=== PATIENT | male | born 1980 | race Caucasian/White ===

== ENCOUNTER 2018-02-23 21:10 | Emergency (ER) | payer BC, SELFPAY ==
[2018-02-23 21:12] VITALS: BP 150/71; PULSE 78; RESP 14; TEMP 36.7; O2SAT 98; BMI 33.1
--- NOTE | 2018-02-23 21:51 | CT_ITS ---
STUDY: CT ABDOMEN AND PELVIS WITHOUT CONTRAST REASON FOR EXAM: Male, 37 years old. Left flank pain RADIATION DOSAGE (If Supplied By Facility): CTDIvol = ( 16.79 ) mGy, DLP = ( 944.69 ) mGycm TECHNIQUE: Transaxial images were obtained from the dome of the diaphragm to the symphysis pubis without oral contrast, and without intravenous contrast. Sagittal and coronal images were reconstructed. Individualized dose optimization techniques were used for this CT. COMPARISON: None. FINDINGS: The visualized lung bases are unremarkable. The visualized portions of the heart are within normal limits. Normal liver. Normal gallbladder and extrahepatic biliary system. Normal spleen. Normal pancreas. Normal bilateral adrenal glands. Normal right kidney. Normal left kidney. Normal visualized stomach. Normal small intestine. Normal colon. The appendix is visualized and appears normal. Normal abdominal aorta. Normal inferior vena cava. Normal retroperitoneum. Normal urinary bladder. Normal abdominal wall. Normal osseous structures. CT/Abdomen/Pelvis without Cont IMPRESSION: No CT evidence of acute abdominopelvic pathology. No evidence of appendicitis, acute intestinal pathology, or acute obstructive uropathy. Electronically Signed: Bhupinder Lagos MD at 22:31 EDT Tel , Service support ,
[2018-02-23] MEDS: 0.9% Normal Saline 1,000 ML 250 ML IV (21:57)
[2018-02-23] MEDS: Ketorolac 30 MG/ML Syringe IV (21:58)
[2018-02-23] MEDS: HYDROmorphone 1 MG/ML Syringe IV (21:58)
[2018-02-23 22:14] LABS: Absolute Lymphocyte Count 3.22 X10^3/ul (0.83-4.51); Absolute Neutrophil Count 7.4 X10^3/uL (2.0-7.7); Basophil# 0.03 X10^3/uL; Basophil% 0.3 % (0-1); Hematocrit 42.1 % (40-54); Hemoglobin 14.9 g/dl (13.0-16.5); Lymphocyte # 3.22 X10^3/ul (4.0); Lymphocyte % 27.2 % (19-41); Mean Corp Hgb Conc 35.4 g/gl (32-36); Mean Corpuscular Hgb 31.1 pg (27.0-32.0); Mean Corpuscular Volume 87.9 fL (80-94); Mean Platelet Vol. 11.4 fl (6.2-12.0); Monocyte# 1.21 X10^3/uL; Monocyte% 10.2 % (0-10); Neutrophil # 7.35 X10^3/uL (2.7-7.7); Neutrophil % 62.1 % (47-70); Platelet Count 230 K/mm3 (150-450); RBC Distribution Width CV 11.9 % (11.6-14.6); RBC Distribution Width SD 38.1 fl (35.1-43.9); Red Blood Count 4.79 M/mm3 (4.6-6.2); White Blood Count 11.8 K/mm3 (4.4-11.0)
[2018-02-23 22:20] LABS: Anion Gap 7 (5-15); BUN 17 mg/dL (7-18); BUN/Creat Ratio 18.8 RATIO (10-20); Calcium,Total 8.7 mg/dL (8.5-10.1); Chloride 107 mmol/L (98-107); Creatinine, Serum 0.91 mg/dL (0.70-1.30); EST Glomerular Filtration Rate 100 mL/min (>60); Est Glom Filt Rate - Afr Amer 121 mL/min (>60); Estimated Creatinine Clearance 130.48 ml/min; Glucose 100 mg/dL (74-106); Sodium Level 140 mmol/L (136-145)
[2018-02-23 22:24] LABS: POSITIVE COUNT NO; POSITIVE DIFFERENTIAL NO; POSITIVE MORPHOLOGY NO
[2018-02-23 22:43] LABS: Bacteria 0 SEEN /hpf (None Seen); Red Blood Cells-Urine 0 SEEN /hpf (0-5)
[2018-02-23 22:44] LABS: Color, Urine Yellow (Yellow); Glucose, Dipstick Normal (Normal); Ketone-Dipstick 5 mg/dl (Negative); Leukocyte Esterase-Dipstick 25 /ul (Negative); Nitrite-Dipstick Negative (Negative); Occult Blood-Urine Negative /ul (Negative); Protein-Dipstick 15 mg/dl (Negative); Urine Bilirubin Dipstick Negative (Negative); Urine Clarity Sl. Cloudy (Clear); Urine Urobilinogen Normal (Normal)
[2018-02-23 22:53] LABS: Mucous, Urine RARE /hpf (<or=2+); Squamous Epithelial Cells - UA 0-5 SEEN /hpf (0-5); White Blood Cells 0-5 SEEN /hpf (0-5)
[2018-02-23 22:54] LABS: Amorphous Sediment 1+ PHOS
--- NOTE | 2018-02-23 23:20 | ED.DCSUM_ITS ---
- ER Visit Summary Date of Service: 02/23/18 Chief Complaint: Flank pain History of Present Illness: The patient is a 37 M left flank pain after waking in since yesterday morning. Symptoms worse with movement. Pain feels deep inside per patient. States urine has decreased somewhat. No dysuria. No incon tinence. No fevers. Denies history of similar. However he reports in 2013 had a abscess in his sacrum region that progressed to his spine requiring emergent surgery at [facility]. Denies any injury or any new activities. No history of gastric ulcers or kidney injury. Physical Examination: General: Alert and oriented ?3, mild distress with movement HEENT: Normocephalic, atraumatic. Moist mucosa membranes Neck: supple, nontender. Cardiovascular: Regular rate and rhythm, no murmurs Respiratory: Normal breath sounds, symmetric, no distress Abdomen: Soft, nontender, nondistended Back: Mild left flank tenderness with no rash. Straight leg test was negative. 1+ patellar reflex. Extremities: Nontender, no edema, pulses intact ?4 Neuro: no focal neurological deficits. Test Results: White count 11.8. Creatinine 0.91. Urine with leukocytes of 25. Urine culture pending. CT abdomen pelvis with no acute process. Emergency Department Course and Treatment: Patient with flank pain, renal stone protocol initiate given Toradol Dilaudid and fluids. Workup no slight leukocytosis 11.8 with urine of 25. CT scan was negative. Reevaluation improving symptoms however did report worsening symptoms with movement. Will place on NSAIDs and muscle relaxer. Did report urine changes that were decreased with leukocytes in his urine he will be placed on Cipro. Discussed this is not causing his pain symptoms. However will treat due to his symptoms. He will monitor symptoms follow-up with his PCP. All questions were answered. Treatment Plan: [] Disposition: Discharge Impression: 1. Left flank pain 2. UTI This note was generated with [employer] dictation software. It may contain incorrect words, spelling, and punctuation that were not noted in review of the chart prior to signing ED Disposition - Plan for ED Patient: Disposition: Home or Assisted Living Chief Complaint: Back Diagnosis: Flank pain, UTI (urinary tract infection) Instructions: ED Flank Pain Uncertain Cause, ED UTI Cystitis Male Prescriptions: Diazepam [Valium] 5 mg PO Q8 PRN #10 tablet PRN Reason: Muscle Spasm Ciprofloxacin [Cipro] 500 mg PO BID #14 tablet Ibuprofen 600 mg PO 4X/DAY PRN #20 tablet PRN Reason: Pain Referrals: Town Doctor,Out of [Primary Care Provider] - 3-5 Days
[2018-02-23 23:28] VITALS: BP 128/90; PULSE 51; RESP 17; O2SAT 97
[2018-02-23] MEDS: Ciprofloxacin 500 MG Tablet 250 MG PO (23:28)
== END 2018-02-23 23:40 | disposition home or self-care (01) ==
PROVIDERS: Emergency Provider Emergency Medicine
DX: N39.0 Urinary tract infection, site not specified (principal); R10.9 Unspecified abdominal pain; I10 Essential (primary) hypertension; Z72.0 Tobacco use; Z79.899 Other long term (current) drug therapy
CPT/HCPCS: 74176; 80048; 81001; 85025; 87086; 96361; 96374; 96375; 99283; J7030; A4216